=== PATIENT | female | born 1960 | race Caucasian/White ===

== ENCOUNTER 2019-09-10 04:47 | Day surgery (SDC) | payer OTHER ==
[2019-09-02 11:29] VITALS: BMI 22.4
[2019-09-10] MEDS ORDERED: PHENAZOPYRIDINE HCL 100 MG TABLET (FP) PO ONE ×2 (07:19→07:30)
[2019-09-10] MEDS ORDERED: CEFAZOLIN 1 GM in DEXTROSE 5%-WATER - 50 ML IVPB ONE (07:19)
[2019-09-10] MEDS ORDERED: ceFAZolin SODIUM 1 GM VIAL ONE (07:28)
--- NOTE | 2019-09-10 08:17 | HP ---
History & Physical Update - History History: No Change - Physical Physical: No Change - Assessment Assessment: No Change - Plan Plan: No Change (Patient's H&P completed by Dr. Rivas on 08/18/19. Complete and accurate, UTD. No new complaints or medications. Dr. Dunaway's ( surgeon) H&P is also UTD and completed within 30 days 09/02/19)
[2019-09-10] MEDS ORDERED: DEXAMETHASONE SOD PHOSPHATE/PF 10 MG/ML SDV ONE (08:28)
[2019-09-10] MEDS ORDERED: BUPIVACAINE HCL/PF 0.5% (5 MG/ML) 30 ML VIAL IJ ONE (08:28)
[2019-09-10] MEDS ORDERED: MIDAZOLAM HCL 2 MG/2 ML SINGLE DOSE VIAL ONE ×2 (08:30→08:36)
[2019-09-10] MEDS ORDERED: DESFLURANE GAS 240 ML BOTTLE IH ONE (08:31)
[2019-09-10] MEDS ORDERED: SUCCINYLCHOLINE CHLORIDE 200 MG/10 ML SYRINGE ONE (08:35)
[2019-09-10] MEDS ORDERED: PROPOFOL 20 ML ONE (08:35)
[2019-09-10] MEDS ORDERED: ROCURONIUM BROMIDE 50 MG/5 ML SYRINGE ONE (08:35)
[2019-09-10] MEDS ORDERED: fentaNYL CITRATE 250 MCG/5 ML VIAL ONE (08:35)
[2019-09-10] MEDS ORDERED: LIDOCAINE HCL/PF 2% SDV 5ML VIAL ONE (08:37)
[2019-09-10] MEDS ORDERED: ceFAZolin 2 GRAM PREMIX BAG IVPB ONE (09:12)
[2019-09-10] MEDS ORDERED: GLYCOPYRROLATE 0.2 MG/1 ML VIAL ONE (10:24)
[2019-09-10] MEDS ORDERED: NEOSTIGMINE METHYLSULFATE 0.5 MG/ML - 10 ML MDV ONE (10:24)
[2019-09-10] MEDS ORDERED: KETOROLAC TROMETHAMINE 30 MG/1 ML VIAL ONE (10:27)
[2019-09-10] MEDS ORDERED: IBUPROFEN 800 MG/8 ML IJ IVPB PRN (10:51)
[2019-09-10] MEDS ORDERED: ONDANSETRON 4 MG/2 ML VIAL IVPUSH PRN ×2 (10:51→11:09)
[2019-09-10] MEDS ORDERED: ACETAMINOPHEN 325 MG TABLET (FP) PO PRN (10:51)
[2019-09-10] MEDS ORDERED: BISACODYL 5 MG TABLET.DR (FP) PO PRN (10:51)
[2019-09-10] MEDS ORDERED: SIMETHICONE 80 MG TAB.CHEW (FP) PO PRN (10:51)
[2019-09-10] MEDS ORDERED: DOCUSATE SODIUM 100 MG CAPSULE (FP) PO PRN (10:51)
[2019-09-10] MEDS ORDERED: oxyCODONE HCL 5 MG TABLET PO PRN (10:51)
--- NOTE | 2019-09-10 10:52 | OP ---
<Ghassan Nguyen - Last Filed: 09/10/19 10:49> Operative Note - Note: Operative Date: 09/10/19 Pre-Operative Diagnosis: Pelvic prolapse Operation: Robotic laprascopic assisted hysterectomy with bilateral salpingectomy Post-Operative Diagnosis: Same as Pre-op Surgeon: Annabella Dunaway Special Education Professional: Ghassan Nguyen Anesthesiologist/SENIOR CONTROLS ENGINEER: Stan Wikls Anesthesia: General Specimens Removed: Uterus and bilateral tubes Estimated Blood Loss (mls): 10 Drains, Volume Out (mls): 100 (mccullough/orange due to pyridium) Fluid Volume Replaced (mls): 600 (LR) Operative Report Dictated: Yes <Annabella Dunaway - Last Filed: 09/11/19 08:31> Operative Note - Note: Operation: Robotic Total Hysterectomy. Bilateral Salpingectomy
--- NOTE | 2019-09-10 10:53 | SURG ---
Surgery Wind Operations Manager Note Wind Operations Manager: Ghassan Nguyen PA-C Date of Service: 09/10/19 Diagnosis: Pelvic prolapse Procedure: Robotic laprascopic assisted hysterectomy with bilateral salpingectomy I was present for the entirety of the operative procedure. For further detail, please refer to operative report. Visit type - Case Type Case Type: Scheduled - New patient This patient is new to me today: Yes Date on this admission: 09/10/19
[2019-09-10] MEDS ORDERED: PROMETHAZINE HCL 25 MG/1 ML VIAL IVPB PRN (11:09)
[2019-09-10] MEDS: LACTATED RINGERS SOLUTION 1,000 ML IV SCH ×2 (12:49→17:17)
[2019-09-10] MEDS: CEFAZOLIN 1 GM/D5W 1 GM/50 ML BAG IVPB SCH (17:14)
[2019-09-10] MEDS: oxyCODONE HCL 5 MG TABLET PO PRN ×2 (17:16→23:08)
[2019-09-10 18:33] LABS: HEMATOCRIT 38.1 % (32.4-45.2); HEMOGLOBIN 12.9 GM/dL (10.7-15.3); MCH 30.1 pg (25.7-33.7); MCHC 33.8 g/dl (32.0-36.0); MEAN CELL VOLUME 88.9 fl (80-96); MEAN PLT VOLUME 10.5 fl (7.5-11.1); PLATELET COUNT 256 K/MM3 (134-434); RBC 4.28 M/mm3 (3.60-5.2); RDW 13.2 % (11.6-15.6); WHITE BLOOD COUNT 11.9 K/mm3 (4.0-10.0)
[2019-09-10 18:58] LABS: BLOOD UREA NITROGEN 9.3 mg/dL (7-18); CALCIUM 8.7 mg/dL (8.5-10.1); CREATININE 1.1 mg/dL (0.55-1.3); POTASSIUM 4.2 mmol/L (3.5-5.1)
[2019-09-10] MEDS ORDERED: ATORVASTATIN CA 10 MG TABLET (FP) PO SCH (22:00)
[2019-09-11] MEDS: CEFAZOLIN 1 GM/D5W 1 GM/50 ML BAG IVPB SCH ×2 (01:35→09:45)
[2019-09-11] MEDS: LACTATED RINGERS SOLUTION 1,000 ML IV SCH (01:41)
[2019-09-11 05:32] VITALS: TEMP 98.2
--- NOTE | 2019-09-11 09:03 | OP ---
DATE OF OPERATION: 09/10/2019 PREOPERATIVE DIAGNOSIS: Pelvic-uterine prolapse. OPERATION: Robotic total hysterectomy and bilateral salpingectomy. POSTOPERATIVE DIAGNOSIS: Pelvic-uterine prolapse. SURGEON: Annabella Dunaway MD BRICKLAYER HELPER: SKYLER Rome ANESTHESIA: General. PROCEDURE: Patient was taken to the operating room, placed in dorsal lithotomy position, prepped and draped in the usual sterile fashion. Timeout was performed in accordance with hospital regulations. Speculum was placed in the vagina. Anterior lip of the cervix grasped with single-tooth tenaculum and cervix then dilated to accommodate the large uterine manipulator. Manipulator was then inserted into the endometrial cavity and around the cervix. Morales catheter was then inserted, and all instruments were then removed except for the uterine manipulator. Attention was then drawn to the umbilicus where an 8-mm umbilical incision was made. Veress needle was inserted into the cavity. Approximately 3-4 L of CO2 was insufflated in the cavity. Veress needle was then removed, and an 8-mm trocar was then inserted. Laparoscope and camera were introduced. Visualization revealed a prolapsed uterus. Two trocars were placed on the left, one in the upper abdomen. A 5-mm umbilical incision was made, and a cannula was then inserted under direct visualization. Ten centimeters parallel to the umbilical incision, a scalpel was then used to make an 8-mm incision in the left thigh. Trocar was inserted under direct visualization. Two robotic trocars were then inserted parallel to each other on the right side 10 cm apart. Scalpel was then used to make incisions, and trocars were introduced under direct visualization. No injury to the viscera was done. [place] robot was then side-docked to the patient's arm, and trocars were then inserted onto the da [place] robot. Vessel sealer was placed in arm 1 and tenaculum and endoscissors were placed in arms 3 and 4. Camera was placed in 2. After all instruments were placed above the uterus, attention was then drawn to the console where control of the console was then done. Uterus was then elevated and tilted to the right side. Utero-ovarian ligaments identified and clamped and cut using vessel sealer. Round ligaments identified and clamped and cut using vessel sealer on the left. Uterine artery was identified and clamped and cut. Vesicouterine reflection was then entered. Bladder was bluntly dissected out of the operative field. Cardinal ligaments were identified and clamped down to the level of the cervix. EndoShears were then used to cut the vagina away from the cervix. Same procedure was repeated on the right side. The EndoShears were then used to remove the cervix away from the vagina. After cervix had been removed from the vagina, the uterus and cervix were then removed. Patient had had a tubal ligation; so, the distal end of the tube was coagulated and cut and removed, both the right and the left and were passed through the vagina. Next, 2-0 V-Loc suture was introduced into the abdominal cavity. Robot was used to close the vagina in a continuous fashion using V-Loc stitch. Hemostasis was achieved. Ureters were identified, both to be vigorously peristalsing both prior to the case and after all sutures had been placed. Hemostasis achieved. Irrigation done. was then removed from the trocar. All instruments were then removed. CO2 was removed from the abdomen. Incisions were then closed using 4-0 Biosyn suture in a subcuticular fashion. Wound was washed and dressed. Patient tolerated the procedure. Estimated blood loss was 50 mL. [place] [id number]
[2019-09-11 09:05] LABS: HEMATOCRIT 35.3 % (32.4-45.2); HEMOGLOBIN 12.1 GM/dL (10.7-15.3); MCH 30.1 pg (25.7-33.7); MCHC 34.3 g/dl (32.0-36.0); MEAN CELL VOLUME 87.7 fl (80-96); MEAN PLT VOLUME 10.3 fl (7.5-11.1); PLATELET COUNT 226 K/MM3 (134-434); RBC 4.03 M/mm3 (3.60-5.2); RDW 13.1 % (11.6-15.6); WHITE BLOOD COUNT 8.7 K/mm3 (4.0-10.0)
--- NOTE | 2019-09-11 09:37 | PN ---
Progress Note (short form) - Note Progress Note: 58yo F s/p robotic total hysterectomy POD 1. Pt seen and examined at bedside. Pt states that her abd pain is well controlled. Denies fever, chills, n/v, excessive vaginal bleeding. Pt is tolerating PO and ambulating well. Pt urinating well. Last Vital Signs Temp Pulse Resp BP Pulse Ox 98.2 F 64 18 119/56 L 96 09/11/19 05:31 09/11/19 05:31 09/11/19 05:31 09/11/19 05:31 09/10/19 20:14 CBC, BMP 09/11/19 08:05 PE Gen: a&O X3 Resp: breathing comfortably Abd: soft, nondistended, mild diffuse tendernes, incisions clean with no erythema or discharge. Ext: no edema Problem List - Problems (1) S/P hysterectomy Assessment/Plan: Plan -adv to regular diet this am -plan to discharge home -pt to follow up with Dr. Dunaway in 1 week for outpatient follow up Case discussed with Dr. Dunaway who agrees with plan Code(s): Z90.710 - ACQUIRED ABSENCE OF BOTH CERVIX AND UTERUS
[2019-09-11] MEDS ORDERED: ENOXAPARIN NA (PORCINE) 40 MG/0.4 ML DISP.SYRIN SQ SCH (10:00)
[2019-09-11 10:10] LABS: CALCIUM 8.6 mg/dL (8.5-10.1); CREATININE 0.6 mg/dL (0.55-1.3); POTASSIUM 3.8 mmol/L (3.5-5.1)
[2019-09-11 11:38] VITALS: BP 103/59; PULSE 76
--- NOTE | 2019-09-14 16:34 | PATH ---
Surgical Pathology Report Patient Name: ARUNA PETIT [facility]. Rec. #: [id number] /Age/Gender: 1960 (Age: 58) / F Account: [id number] Location: AMBULATORY SURG Taken: 09/10/2019 Received: 09/10/2019 Reported: 09/14/2019 Physicians: Annabella Dunaway M.D. Specimen(s) Received A: UTERUS B: LEFT FALLOPIAN TUBE C: RIGHT FALLOPIAN TUBE Clinical History Utero-pelvic prolapse Final Diagnosis A. UTERUS, HYSTERECTOMY: WEAKLY PROLIFERATIVE/ INACTIVE ENDOMETRIUM. CERVIX WITH MILD CHRONIC INFLAMMATION, SUBMUCOSAL FIBROSIS, AND SQUAMOUS METAPLASIA. NEGATIVE FOR MALIGNANCY. B. LEFT FALLOPIAN TUBE, RESECTION: PORTION OF FALLOPIAN TUBE WITH PARATUBAL CYSTS. COMPLETE CROSS SECTION OF LUMEN IDENTIFIED. C. RIGHT FALLOPIAN TUBE, RESECTION: PORTION OF FALLOPIAN TUBE WITH NO SIGNIFICANT PATHOLOGIC CHANGE. COMPLETE CROSS SECTION OF LUMEN IDENTIFIED. Electronically Signed Ashly Butterfield M.D. Gross Description A. Received in formalin labeled "uterus," is a 32 g uterus with an attached cervix and no attached adnexa. The specimen measures 5.5 cm from superior to inferior, 4.0 cm from left to right and 2.3 cm from anterior to posterior. The serosa is mcrae-man and smooth. The attached cervix measures 2 cm in length and averages 1.7 cm in diameter. The ectocervix is pink-mcrae, smooth and glistening. The endocervix is unremarkable. The endometrial cavity measures 2.5 cm in length and 1.2 cm from cornu to cornu. The endometrium is red and averages 0.1 cm in thickness. The myometrium is mcrae and averages 1.1 cm in thickness. No intramural nodules are identified. Pilot Safety Inspector sections are submitted in 6 cassettes as follows: 1-anterior cervix; 2-posterior cervix; 0-8-lvoytrsj endomyometrium; 6-1-xfvgsxuuv endomyometrium. B. Received in formalin labeled "left fallopian tube," is a 0.9 cm in length fimbriated portion of fallopian tube. The outer surface is man and smooth. Sectioning reveals an unremarkable lumen. The specimen is entirely submitted in 2 cassettes as follows: 1-fimbria; 2-cross sections of fallopian tube. C. Received in formalin labeled "right fallopian tube," is a 0.9 cm in length fimbriated fallopian tube. The outer surface is mcrae ocampo and smooth. Sectioning reveals an unremarkable lumen. The specimen is entirely submitted in 2 cassettes as follows: 1-fimbria; 2-cross sections of fallopian tube. 09/11/201909/11/2019
== END 2019-09-11 10:58 | disposition home or self-care (01) ==
LOC: JASUSAT 04:47 → JASU-SURG 04:47 → J6S 15:39 → JASUSAT 09-11 10:58
PROVIDERS: ATTEND Obstetrics & Gynecology
PROC: 8E0W4CZ Robotic Assisted Procedure of Trunk Region, Percutaneous Endoscopic Approach (ICD-10-PCS; 2019-09-10)
PROC: 0UT94ZZ Resection of Uterus, Percutaneous Endoscopic Approach (ICD-10-PCS; principal; 2019-09-10 09:00)
PROC: 0UT74ZZ Resection of Bilateral Fallopian Tubes, Percutaneous Endoscopic Approach (ICD-10-PCS; 2019-09-10 09:00)
DX: N81.9 Female genital prolapse, unspecified (principal)
CPT/HCPCS: 58571; S2900; 36415; 80048; 85027; 86850; 86900; 86901; 86922; 88302-TC; 88305-TC; 94760